=== PATIENT | male | born 1945 | race Two or more races ===

== ENCOUNTER 2023-06-23 13:26 | Emergency (ER) | payer OTHER ==
[~2023-06-23] VITALS: Ht 175.3 cm; Wt 98.0 kg
[~2023-06-23 13:26] MED LIST: ALLOPURINOL300 MG PO; AMLODIPINE BESYL5 MG; ASPIR 8181 MG PO; AVAPRO300 MG; METOPROLOL SUCC50 MG; METOPROLOL TART50 MG PO; SIMVASTATIN10 MG PO; ULTRACET PO
== END 2023-06-23 16:55 | disposition home or self-care (01) ==
LOC: ER 13:26
DX: M77.8 Other enthesopathies, not elsewhere classified (principal)
CPT/HCPCS: 96372; 99283; J1100; J1885; J2360

== ENCOUNTER 2023-11-01 12:08 | Emergency (ER) | payer OTHER ==
[~2023-11-01] VITALS: Ht 175.3 cm; Wt 104.3 kg
[2023-11-01] MEDS ORDERED: COLCRYS0.6 MG PO (14:35)
[2023-11-01] MEDS ORDERED: KETO10TA2 PO (14:35)
== END 2023-11-01 15:31 | disposition home or self-care (01) ==
LOC: ER 12:08
DX: M25.561 Pain in right knee (principal); I10 Essential (primary) hypertension; M10.9 Gout, unspecified
CPT/HCPCS: 36415; 96372; 99284; J1885

== ENCOUNTER 2025-04-23 11:06 | Emergency (ER) | payer OTHER ==
[~2025-04-23] VITALS: Ht 175.3 cm; Wt 102.1 kg
[~2025-04-23 11:06] MED LIST changes: +COLCRYS0.6 MG PO; +KETO10TA2 PO
[2025-04-23] MEDS ORDERED: METFORMIN HCL1000 M2 PO (12:03)
[2025-04-23] MEDS ORDERED: LIPITOR20 MG PO (12:05)
[2025-04-23] MEDS ORDERED: KETOROLAC TROMETHAMINE 60 MG VIAL IM STA (12:31)
[2025-04-23] MEDS ORDERED: KETOROLAC TROMETHAMINE 60 MG VIAL IM ONE ×2 (12:39→13:35)
== END 2025-04-23 15:41 | disposition home or self-care (01) ==
LOC: ER 12:18
DX: M25.531 Pain in right wrist (principal); M19.90 Unspecified osteoarthritis, unspecified site; I10 Essential (primary) hypertension; E11.9 Type 2 diabetes mellitus without complications; Z79.84 Long term (current) use of oral hypoglycemic drugs; M85.821 Other specified disorders of bone density and structure, right upper arm
CPT/HCPCS: 36415; 73100; 96372; 99283; J1885